=== PATIENT | female | born 1940 | race Caucasian/White ===

== ENCOUNTER 2024-02-02 21:23 | Inpatient (IN) ==
[2024-02-02 22:08] LABS: Hematocrit (blood only) 35.1 % (37.0-47.0); Hemoglobin 11.5 g/dl (12.0-16.0); Mean Corpuscular Hemoglobin 29.7 pg (25.0-34.0); Mean Corpuscular Hgb Conc 32.8 g/dL (32.0-36.0); Mean Corpuscular Volume 90.7 fL (80.0-100.0); Mean Platelet Volume 9.8 fL (9.4-12.4); Platelet Count 197 K/uL (130-400); RDW Coefficient of Variation 12.6 % (11.5-14.5); RDW Standard Deviation 41.5 fL (36.4-46.3); Red Blood Count 3.87 M/uL (4.20-5.40); White Blood Count 10.14 K/ul (4.8-10.8)
[2024-02-02 22:25] LABS: Albumin Globulin Ratio 1.4 (0.9-2); Albumin Level 4.2 gm/dl (3.4-5.0); BUN Creatinine Ratio 16.2 (10-20); Bilirubin,Total 0.6 mg/dl (0.2-1.0); Calcium 9.6 mg/dl (8.6-10.3); Creatinine Clr Calc Pharmacy 37.6 ml/min; Est GFR (African American) 57.3 ml/min; Est GFR (Non-African American) 49.4 ml/min; Globulin 2.9 gm/dl (2.5-4.0); Total Protein 7.1 gm/dl (6.0-8.3)
[2024-02-02 22:40] LABS: Partial Thromboplastin Ratio 0.9; Partial Thromboplastin Time 25 Seconds (21-31); Prothrombin Time 11.1 Seconds (9.0-12.0)
[2024-02-02] MEDS: OPTIRAY 320 100ml IV ONE (23:01)
--- NOTE | 2024-02-03 00:32 | Emergency Department Note ---
Impression & Plan Colitis, GIB (gastrointestinal bleeding) ED Provider Note NAME: KEYSHA ENCARNACION AGE: 84 SEX: F : 1940 ARRIVES VIA: Walk-In INFORMANT: Patient, ED PROVIDER(S): Augustina Reyez MD CHIEF COMPLAINT: Abdominal pain, bloody bowel movements HPI: This is an 84-year-old female presenting abdominal pain and rectal bleeding. Patient states that she has had diffuse lower abdominal pain for the past 2 days. She notes that it is fairly severe, similar to previous diverticulitis. She notes she is having pain with bowel movements as well. She notes brown stools with blood mixed around the stools. This never happened before. She is on a blood thinner to her knowledge. Otherwise no fever, chills. She does note nausea with vomiting today. ROS: See above HPI for pertinent positives & negatives. A total of 10 systems reviewed and were otherwise negative. PHYSICAL EXAMINATION: General: resting comfortably in no acute distress Head: Normocephalic and atraumatic Eyes: Normal inspection, extraocular muscles intact Ear, nose, throat: Normal external exam Neck: Normal range of motion Respiratory: lungs clear to auscultation bilaterally Cardiovascular: Regular rate/rhythm, no murmur GI: soft, lower abdominal tenderness without rebound or guarding Extremities: nontender, moves all extremities Neuro: The patient awake and alert, appropriately conversive, no focal deficits, symmetric faces Skin: Warm, dry, and intact MEDICAL DECISION MAKING: This Is a 84-year-old female presented for abdominal pain/rectal bleeding. Concern for diverticulitis, SBO, colitis, ulcer, mesenteric ischemia, lower GI bleed. -blood work is reviewed showing no leukocytosis, slight anemia at 11.5 without clear baseline. -Electrolyte within normal limits. AST 61 ALT 37. -CT imaging does reveal signs of colitis. Patient had numerous episodes of bloody bowel movements, some while in the emergency department. Patient and family are comfortable with discharge home due to persistent bleeding with bowel movements. Will discuss with hospitalist for admission at this time. Differential diagnosis: GI bleed, colitis, hemorrhoids, colitis ER treatment provided: See below Diagnostics interpreted by me: ECG: ECG independently interpreted by me with normal sinus rhythm, rate of 99, left axis deviation, normal SD, normal QRS, normal QTc, no ST segment elevations consistent with STEMI criteria Cardiac Monitoring: An order was placed for continuous cardiac monitoring. The monitor shows a rate of 82 with sinus rhythm. Laboratory studies: As stated above and show below. Imaging studies: See below. Past Med/Surg History Problem List (Updated 02/05/24 @ 01:30 by Augustina Reyez MD) GIB (gastrointestinal bleeding) (Acute) Rheumatoid arthritis Chest discomfort Recurrent UTI Insomnia GERD (gastroesophageal reflux disease) Hyperlipemia Diabetes Hypertension Colitis (Acute) Social History Smoking Status: Never smoker Hx Substance Use: No Preferred Language: Guyanese Communication Ability: Effective Travel Consultant Required: No Beliefs That Will Affect Care: None Current Living Situation: Spouse Feels Safe at Home: Yes Assistive Devices: Stair Lift and Walker Allergies Allergies Allergy/AdvReac Type Severity Reaction Status Date / Time metronidazole [From Flagyl] AdvReac Unknown Verified 02/03/24 02:59 Home Meds Home Medications Medication Instructions Recorded Confirmed amlodipine 5 mg tablet 5 mg PO DAILY 02/03/24 02/03/24 atorvastatin 80 mg tablet 80 mg PO DAILY 02/03/24 02/03/24 carvedilol 12.5 mg tablet 12.5 mg PO BID 02/03/24 02/03/24 clonazepam 0.5 mg tablet 0.5 mg PO BID PRN Anxiety 02/03/24 02/03/24 conjugated estrogens 0.625 mg/gram 1 applic vaginal DIRECTED PRN .. 02/03/24 02/03/24 vaginal cream (Premarin) dicyclomine 20 mg tablet 20 mg PO TID PRN .abd pain 02/03/24 02/03/24 folic acid 1 mg tablet 1 mg PO DAILY 02/03/24 02/03/24 metformin 500 mg tablet 250 mg PO DAILY 02/03/24 02/03/24 methotrexate sodium 2.5 mg tablet 12.5 mg PO .Q THUR 02/03/24 02/03/24 nitrofurantoin macrocrystal 100 mg 100 mg PO CQWK 02/03/24 02/03/24 capsule pantoprazole 40 mg tablet,delayed 40 mg PO DAILY 02/03/24 02/03/24 release potassium chloride 10 mEq 10 meq PO BID 02/03/24 02/03/24 tablet,extended release zolpidem 5 mg tablet 5 mg PO HS PRN Sleep 02/03/24 02/03/24 Results & Data (ED) Vital Signs Vital Signs - 24 hr 02/02/24 21:25 02/02/24 21:29 02/02/24 21:56 Temperature 36.5 C Temperature Source Oral Pulse Rate - Lying Pulse Rate - Sitting Pulse Rate - Standing Pulse Rate 110 H 87 Pulse Rate [Apical] Pulse Rhythm Regular Pulse Rhythm [Apical] Pulse Strength Normal Respiratory Rate 17 Respiratory Effort / Characteristics Non-Labored Spontaneous Respiratory Depth Normal Respiratory Pattern Regular Blood Pressure - Lying Blood Pressure - Sitting Blood Pressure- Standing Blood Pressure 144/75 H Blood Pressure [Left Arm] Blood Pressure Mean 98 Blood Pressure Mean [Left Arm] Blood Pressure Position Semi-fowlers Pulse Oximetry 94 Oxygen Delivery Method Room Air Room Air Sepsis Recent Fever Within 48 Hours No Sepsis New/Unexplained Change in Mental Status N/A Sepsis Action Taken by Nursing No Action Required 02/02/24 22:44 02/02/24 23:01 02/03/24 00:59 Temperature Temperature Source Pulse Rate - Lying 83 Pulse Rate - Sitting 89 Pulse Rate - Standing 93 H Pulse Rate Pulse Rate [Apical] 83 Pulse Rhythm Pulse Rhythm [Apical] Regular Pulse Strength Respiratory Rate 16 Respiratory Effort / Characteristics Respiratory Depth Respiratory Pattern Blood Pressure - Lying 138/81 Blood Pressure - Sitting 143/66 H Blood Pressure- Standing 97/59 L Blood Pressure Blood Pressure [Left Arm] 148/67 H Blood Pressure Mean Blood Pressure Mean [Left Arm] 94 Blood Pressure Position Pulse Oximetry 97 Oxygen Delivery Method Room Air Room Air Sepsis Recent Fever Within 48 Hours Sepsis New/Unexplained Change in Mental Status Sepsis Action Taken by Nursing Laboratory Data 02/04/24 06:28 02/04/24 06:28 Lab Results 02/02/24 Range/Units 21:37 WBC 10.14 (4.8-10.8) K/ul RBC 3.87 L (4.20-5.40) M/uL Hgb 11.5 L (12.0-16.0) g/dl Hct 35.1 L (37.0-47.0) % MCV 90.7 (80.0-100.0) fL MCH 29.7 (25.0-34.0) pg MCHC 32.8 (32.0-36.0) g/dL RDW Std Deviation 41.5 (36.4-46.3) fL RDW Coeff of Apollo 12.6 (11.5-14.5) % Plt Count 197 (130-400) K/uL MPV 9.8 (9.4-12.4) fL PT 11.1 (9.0-12.0) Seconds INR 1.0 (0.9-1.1) APTT 25 (21-31) Seconds PTT Ratio 0.9 Sodium 135 L (136-145) mmol/L Potassium 4.0 (3.5-5.1) mmol/L Chloride 104 (98-107) mmol/L Carbon Dioxide 25 (21-32) mmol/L Anion Gap 6 (3-11) BUN 17 (6-23) mg/dl Creatinine 1.05 (0.6-1.2) mg/dl Est Cr Clr Drug Dosing 37.6 ml/min Est GFR ( Amer) 57.3 ml/min Est GFR (Non-Af Amer) 49.4 ml/min BUN/Creatinine Ratio 16.2 (10-20) Glucose 110 H (70-99(Fasting)) mg/dl Calcium 9.6 (8.6-10.3) mg/dl Total Bilirubin 0.6 (0.2-1.0) mg/dl AST 61 H (13-39) U/L ALT 37 (7-52) U/L Alkaline Phosphatase 49 (34-104) U/L Troponin I High Sens 7.0 (0-14) pg/ml Total Protein 7.1 (6.0-8.3) gm/dl Albumin 4.2 (3.4-5.0) gm/dl Globulin 2.9 (2.5-4.0) gm/dl Albumin/Globulin Ratio 1.4 (0.9-2) Blood Type A Positive Antibody Screen NEGATIVE Administered Medications Acetaminophen (Acetaminophen 500 Mg Tab) 1,000 mg PO Q8H PRN PRN Reason: Pain or Fever Stop: 03/05/24 08:27 Last Admin: 02/04/24 13:05 Dose: 1,000 mg Documented By: BRI Amlodipine Besylate (Amlodipine Besylate 5 Mg Tab) 5 mg PO DAILY TORY Stop: 03/04/24 08:59 Last Admin: 02/04/24 07:51 Dose: 5 mg Documented By: Admin: 02/03/24 08:22 Dose: 5 mg Documented By: SHANAE Atorvastatin Calcium (Atorvastatin 40 Mg Tab) 80 mg PO DAILY TORY Stop: 03/05/24 15:29 Last Admin: 02/04/24 17:58 Dose: 80 mg Documented By: AFSHAN Carvedilol (Carvedilol 12.5 Mg Tab) 12.5 mg PO BID TORY Stop: 03/04/24 08:59 Last Admin: 02/04/24 20:12 Dose: 12.5 mg Documented By: Admin: 02/04/24 07:51 Dose: 12.5 mg Documented By: Admin: 02/03/24 20:27 Dose: 12.5 mg Documented By: Admin: 02/03/24 08:22 Dose: 12.5 mg Documented By: SHANAE Dicyclomine HCl (Dicyclomine Hcl 20 Mg Tab) 20 mg PO TID PRN PRN Reason: .abd pain Stop: 03/04/24 04:06 Last Admin: 02/04/24 01:41 Dose: 20 mg Documented By: Admin: 02/03/24 17:00 Dose: 20 mg Documented By: SHANAE Lactated Ringer's (Lr) 1,000 mls @ 80 mls/hr IV .[id number] TORY Stop: 03/04/24 04:59 Last Admin: 02/04/24 23:34 Dose: 80 mls/hr Documented By: Infusion: 02/04/24 22:51 Dose: Infused Documented By: Admin: 02/04/24 18:03 Dose: Not Given Documented By: Admin: 02/04/24 10:21 Dose: 80 mls/hr Documented By: Infusion: 02/04/24 10:21 Dose: Infused Documented By: Admin: 02/03/24 20:25 Dose: 80 mls/hr Documented By: Infusion: 02/03/24 19:47 Dose: Infused Documented By: Infusion: 02/03/24 16:59 Dose: 125 mls/hr Documented By: Admin: 02/03/24 09:06 Dose: 125 mls/hr Documented By: Infusion: 02/03/24 09:06 Dose: Infused Documented By: Admin: 02/03/24 05:19 Dose: 125 mls/hr Documented By: ANGELINE Pantoprazole Sodium 40 mg/ (Syringe) 10 mls @ 5 mls/min IV BID TORY Stop: 03/04/24 04:29 Last Admin: 02/04/24 20:12 Dose: 5 mls/min Documented By: Admin: 02/04/24 07:51 Dose: 5 mls/min Documented By: Admin: 02/03/24 20:26 Dose: 5 mls/min Documented By: Admin: 02/03/24 05:18 Dose: 5 mls/min Documented By: ANGELINE Nitrofurantoin Macrocrystals (Nitrofurantoin Macrocrystal 50 Mg Cap) 100 mg PO DAILY TORY Stop: 03/05/24 15:29 Last Admin: 02/04/24 17:59 Dose: 100 mg Documented By: AFSHAN Ondansetron HCl (Ondansetron Inj 2 Mg/Ml 2 Ml Vial) 4 mg IV Q6H PRN PRN Reason: Nausea Stop: 03/04/24 04:06 Last Admin: 02/03/24 20:33 Dose: 4 mg Documented By: Admin: 02/03/24 11:16 Dose: 4 mg Documented By: SHANAE Oxycodone HCl (Oxycodone Hcl Ir 5 Mg Tab (Immediate Release)) 5 mg PO Q6H PRN PRN Reason: Pain Stop: 02/18/24 08:27 Last Admin: 02/04/24 20:14 Dose: 5 mg Documented By: COLE Discontinued Medications Hydromorphone HCl (Hydromorphone Inj 0.5 Mg/0.5 Ml Syr) 0.5 mg IV Q3H PRN PRN Reason: Pain Stop: 02/17/24 04:06 Last Admin: 02/03/24 23:09 Dose: 0.5 mg Documented By: Admin: 02/03/24 09:07 Dose: 0.5 mg Documented By: Admin: 02/03/24 04:32 Dose: 0.5 mg Documented By: GABRIEL Lactated Ringer's (Lr) 500 mls @ 999 mls/hr IV .Q31M ONE Stop: 02/03/24 04:37 Last Infusion: 02/03/24 05:19 Dose: Infused Documented By: Admin: 02/03/24 04:28 Dose: 999 mls/hr Documented By: GABRIEL Acetaminophen (Ofirmev) 1,000 mg in 100 mls @ 400 mls/hr IV Q8H PRN PRN Reason: Pain Stop: 02/06/24 04:06 Last Infusion: 02/04/24 01:55 Dose: Infused Documented By: Admin: 02/04/24 01:40 Dose: 400 mls/hr Documented By: Infusion: 02/03/24 17:20 Dose: Infused Documented By: Admin: 02/03/24 17:02 Dose: 400 mls/hr Documented By: SHANAE Ioversol (Optiray 320 100ml) 94 ml IV ONCE ONE Stop: 02/02/24 23:02 Last Admin: 02/02/24 23:01 Dose: 94 ml Documented By: JOSE Imaging Data Radiologist's Impression: Abdomen/Pelvis CT 02/02/24 22:41 Exam(s): CT ABDOMEN + PELVIS With Contrast IV Amt: 94 ml opti 320 EXAM: CT Abdomen and Pelvis With Intravenous Contrast CLINICAL HISTORY: Reason for exam: ABd pain x2 days, rectal bleed. TECHNIQUE: Axial computed tomography images of the abdomen and pelvis with intravenous contrast. Automated exposure control was utilized for the study. A dose lowering technique was utilized adhering to the principles of ALARA. CONTRAST: Patient received 94 ml opti 320 of IV contrast COMPARISON: No relevant prior studies available. FINDINGS: Lung bases: Unremarkable. No mass. No consolidation. ABDOMEN: Liver: Hepatic steatosis. Gallbladder and bile ducts: Cholecystectomy. No ductal dilation. Pancreas: Unremarkable. No mass. No ductal dilation. Spleen: Unremarkable. No splenomegaly. Adrenals: Unremarkable. No mass. Kidneys and ureters: LEFT upper pole renal cyst measures 5.1 cm. No hydronephrosis or delayed nephrogram. Stomach and bowel: Moderate wall thickening of the sigmoid colon, concerning for colitis. Diverticulosis, without acute diverticulitis. No bowel obstruction. No free air. PELVIS: Appendix: No findings to suggest acute appendicitis. Bladder: Unremarkable. No mass. Reproductive: Unremarkable as visualized. ABDOMEN and PELVIS: Intraperitoneal space: See above. Bones/joints: Degenerative changes of the spine. No acute fracture. No dislocation. Soft tissues: Unremarkable. Vasculature: Atherosclerotic changes of the aorta. No abdominal aortic aneurysm. Lymph nodes: Unremarkable. No enlarged lymph nodes. IMPRESSION: 1. Moderate wall thickening of the sigmoid colon, concerning for colitis. 2. Hepatic steatosis. 3. Cholecystectomy. 4. Diverticulosis, without acute diverticulitis. No bowel obstruction. No free air. Electronically signed by: Gino Xiong MD 02/03/24 01:09 AM Discharge Plan Visit Data Chief Complaint: Bleeding Stated Complaint: BLEED RECTAL, SWELLING, FATIGUE. LIGHTHEADED ED Provider: Augustina Reyez Discharge Problem: Colitis, GIB (gastrointestinal bleeding) Patient Disposition: Admitted As Inpatient Discharge Instructions Interventions: ED Discharge Assessment Last Done: 02/03/24 03:51
--- NOTE | 2024-02-03 01:10 | CT Scan Report ---
Exam(s): CT ABDOMEN + PELVIS With Contrast IV Amt: 94 ml opti 320 EXAM: CT Abdomen and Pelvis With Intravenous Contrast CLINICAL HISTORY: Reason for exam: ABd pain x2 days, rectal bleed. TECHNIQUE: Axial computed tomography images of the abdomen and pelvis with intravenous contrast. Automated exposure control was utilized for the study. A dose lowering technique was utilized adhering to the principles of ALARA. CONTRAST: Patient received 94 ml opti 320 of IV contrast COMPARISON: No relevant prior studies available. FINDINGS: Lung bases: Unremarkable. No mass. No consolidation. ABDOMEN: Liver: Hepatic steatosis. Gallbladder and bile ducts: Cholecystectomy. No ductal dilation. Pancreas: Unremarkable. No mass. No ductal dilation. Spleen: Unremarkable. No splenomegaly. Adrenals: Unremarkable. No mass. Kidneys and ureters: LEFT upper pole renal cyst measures 5.1 cm. No hydronephrosis or delayed nephrogram. Stomach and bowel: Moderate wall thickening of the sigmoid colon, concerning for colitis. Diverticulosis, without acute diverticulitis. No bowel obstruction. No free air. PELVIS: Appendix: No findings to suggest acute appendicitis. Bladder: Unremarkable. No mass. Reproductive: Unremarkable as visualized. ABDOMEN and PELVIS: Intraperitoneal space: See above. Bones/joints: Degenerative changes of the spine. No acute fracture. No dislocation. Soft tissues: Unremarkable. Vasculature: Atherosclerotic changes of the aorta. No abdominal aortic aneurysm. Lymph nodes: Unremarkable. No enlarged lymph nodes. IMPRESSION: 1. Moderate wall thickening of the sigmoid colon, concerning for colitis. 2. Hepatic steatosis. 3. Cholecystectomy. 4. Diverticulosis, without acute diverticulitis. No bowel obstruction. No free air. Electronically signed by: Gino Xiong MD 02/03/24 01:09 AM
--- NOTE | 2024-02-03 02:11 | History & Physical Report ---
Date of Service February 03, 2024 Assessment & Plan (1) Colitis: Plan: Non-specific colitis seen on CT A&P. Diverticulosis without signs of diverticulitis. PCR stool ordered. Heme all stools ordered. Continue with conservative measures for now. NPO - sips/chips okay IVF - LR bolus 500 mL x1, mIVF @125 Tylenol 1 g Q8H PRN, dilaudid 0.25 and 0.5 Q3H PRN GI consulted - appreciate recs f/u stool PCR continue home dicyclomine IV protonix 40 mg BID (2) Hypertension: Plan: Continue home amlodipine and coreg (3) Diabetes: Plan: Hold home metformin. If persistently elevated sugars could consider SSI. (4) Hyperlipemia: Plan: Hold statin for now. Resume once feeling better. (5) GERD (gastroesophageal reflux disease): Plan: Switch to IV protonix while inpatient - 40 mg BID (6) Insomnia: Plan: Continue home Ambien and PRN clonazepam (7) Recurrent UTI: Plan: Patient with difficulty with complete voiding. Does straight cath TID. Will continue with Q6H cath while inpatient. Is on chronic abx for recurrent UTI. Dosing unclear as med rec says PO nitrofurantoin CQWK. Would clarify what that means. (8) Chest discomfort: Plan: Left sided pain under the breast. EKG with non-specific changes ?q-waves. Patient likely had trops at [facility] which were most likely negative. Do not have access to these records at present. Ordered trop with repeat in 2 hours if > 20. Low suspicion for ACS. If trop positive would move to tele floor. Plan Code status: full DVT ppx: SCDs, chemo ppx contraindicated as GI bleed FENGI: NPO for now - sips and chips okay, IVF @ 125 mL/hr LR Dispo: MedSurg History of Present Illness Chief Complaint: blood in stool Primary Care Provider: Nilson San DO 84 y/o female with a PMHx of HTN, DM, GERD, and HLD presents with 3 days of significant abdominal pain. Symptoms started with diffuse, sharp, stabbing abdominal pain, cramping abdominal pain, nausea, vomiting and constipation. 02/01 patient developed bloody BMs. No significant volume to BM, but there was blood in the bowl and blood with wiping. No lightheadedness or dizziness. No fevers or chills. No chest pain or SOB. Patient with one episode of vomiting. No sick contacts. Patient did note having some pain under the left breast as well. Patient did go to [facility] prior to this and they did "labs and an echocardiogram". Patient not aware of the results of these tests. Allergies Allergy/AdvReac Type Severity Reaction Status Date / Time metronidazole [From Flagyl] AdvReac Unknown Verified 02/03/24 02:59 Home Medications Medication Instructions Recorded Confirmed Type amlodipine 5 mg tablet 5 mg PO DAILY 02/03/24 02/03/24 History atorvastatin 80 mg tablet 80 mg PO DAILY 02/03/24 02/03/24 History carvedilol 12.5 mg tablet 12.5 mg PO BID 02/03/24 02/03/24 History clonazepam 0.5 mg tablet 0.5 mg PO BID PRN Anxiety 02/03/24 02/03/24 History conjugated estrogens 0.625 mg/gram 1 applic vaginal DIRECTED PRN .. 02/03/24 02/03/24 History vaginal cream (Premarin) dicyclomine 20 mg tablet 20 mg PO TID PRN .abd pain 02/03/24 02/03/24 History folic acid 1 mg tablet 1 mg PO DAILY 02/03/24 02/03/24 History metformin 500 mg tablet 250 mg PO DAILY 02/03/24 02/03/24 History methotrexate sodium 2.5 mg tablet 12.5 mg PO .Q THUR 02/03/24 02/03/24 History nitrofurantoin macrocrystal 100 mg 100 mg PO CQWK 02/03/24 02/03/24 History capsule pantoprazole 40 mg tablet,delayed 40 mg PO DAILY 02/03/24 02/03/24 History release potassium chloride 10 mEq 10 meq PO BID 02/03/24 02/03/24 History tablet,extended release zolpidem 5 mg tablet 5 mg PO HS PRN Sleep 02/03/24 02/03/24 History Past Med/Surg History Problem List Chest discomfort Recurrent UTI Insomnia GERD (gastroesophageal reflux disease) Hyperlipemia Diabetes Hypertension Colitis Social History Smoking Status: Never smoker Hx Substance Use: No Preferred Language: Pashto 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 Beliefs That Will Affect Care: None Current Living Situation: Spouse Feels Safe at Home: Yes Review of Systems 2 Review of Systems: See HPI Physical Exam 2 Physical Exam: Gen: well appearing female patient in NAD HEENT: AT NC MMM Resp: CTAB no wheezing no increased work of breathing CV: RRR no m/r/g clinically well perfused Abd: +BS, soft, mildly tender LLQ, slightly distended without peritoneal signs MSK: no obvious deformities Skin: no rashes or bruising Neuro: alert and oriented Psych: appropriate mood and affect Results & Data Results & Data Vital Signs (Past 12 Hours) Vital Signs Temp Pulse Pulse Resp BP BP Pulse Ox 02/03/24 02:07 85 02/03/24 00:59 83 16 148/67 H 97 02/02/24 23:01 02/02/24 21:56 87 02/02/24 21:29 36.5 C 110 H 17 144/75 H 94 02/02/24 21:25 O2 Del Method 02/03/24 02:07 02/03/24 00:59 Room Air 02/02/24 23:01 Room Air 02/02/24 21:56 02/02/24 21:29 Room Air 02/02/24 21:25 Room Air Laboratory Results 02/02/24 21:37 02/02/24 21:37 Diagnostic Findings Abdomen/Pelvis CT 02/02/24 22:41 FINDINGS: Lung bases: Unremarkable. No mass. No consolidation. ABDOMEN: Liver: Hepatic steatosis. Gallbladder and bile ducts: Cholecystectomy. No ductal dilation. Pancreas: Unremarkable. No mass. No ductal dilation. Spleen: Unremarkable. No splenomegaly. Adrenals: Unremarkable. No mass. Kidneys and ureters: LEFT upper pole renal cyst measures 5.1 cm. No hydronephrosis or delayed nephrogram. Stomach and bowel: Moderate wall thickening of the sigmoid colon, concerning for colitis. Diverticulosis, without acute diverticulitis. No bowel obstruction. No free air. PELVIS: Appendix: No findings to suggest acute appendicitis. Bladder: Unremarkable. No mass. Reproductive: Unremarkable as visualized. ABDOMEN and PELVIS: Intraperitoneal space: See above. Bones/joints: Degenerative changes of the spine. No acute fracture. No dislocation. Soft tissues: Unremarkable. Vasculature: Atherosclerotic changes of the aorta. No abdominal aortic aneurysm. Lymph nodes: Unremarkable. No enlarged lymph nodes. IMPRESSION: 1. Moderate wall thickening of the sigmoid colon, concerning for colitis. 2. Hepatic steatosis. 3. Cholecystectomy. 4. Diverticulosis, without acute diverticulitis. No bowel obstruction. No free air. Supervising Physician Co-Signing Physician Notes Attending addendum: I have physically seen this patient, have supervised the medical residents activities, and agree with the H&P unless as otherwise noted. Assessment and Plan: Sigmoid colitis- CT with thickening of sigmoid colon suggestive of sigmoid colitis Diverticulosis without signs of diverticulitis Order stool PCR, can start IV antibiotics if no E. coli Bowel rest NPO, except for sips of water and maintenance medications IV fluids: LR bolus 500 mL, followed by maintenance at 125 MLS per hour Acetaminophen 1 g IV every 8 hours as needed for mild pain or fever Dilaudid 0.25 mg IV every 3 hours as needed for moderate pain Dilaudid 0.5 mg IV every 3 hours as needed for severe pain Pantoprazole 40 mg IV twice daily Consult to gastroenterology Hypertension- Continue amlodipine and Coreg with hold parameters Diabetes mellitus- Hold metformin Placed on Accu-Cheks with NovoLog SSI Immunocompromised- On methotrexate as outpatient Follow cultures and sensitivities Resident Activity Tracking Resident Involvement: Resident Care Provided Care Provided: Adult [facility]
[2024-02-03] MEDS ORDERED: MELATONIN 3 MG TAB PO PRN (04:07)
[2024-02-03] MEDS ORDERED: HYDROmorphone INJ 0.5 MG/0.5 ML SYR IV PRN (04:07)
[2024-02-03] MEDS: LACTATED RINGER'S 500 ML IV ONE (04:28)
[2024-02-03] MEDS: HYDROmorphone INJ 0.5 MG/0.5 ML SYR IV PRN (04:32)
[2024-02-03] MEDS: PANTOprazole 40 MG in SYRINGE 0 ML IV SCH (05:18)
[2024-02-03] MEDS: LACTATED RINGER'S 1,000 ML IV SCH (05:19)
[2024-02-03 06:14] LABS: Basophils # (auto) 0.03 K/uL (0.00-0.20); Basophils % (auto) 0.3 %; Eosinophils # (auto) 0.11 K/uL (0.00-0.50); Eosinophils % (auto) 1.3 %; Hematocrit (blood only) 31.2 % (37.0-47.0); Hemoglobin 10.1 g/dl (12.0-16.0); Immature Granulocytes # (auto) 0.02 K/uL (0.01-0.20); Immature Granulocytes % (auto) 0.2 %; Lymphocytes # (auto) 1.28 K/uL (1.20-3.40); Lymphocytes % (auto) 14.6 %; Mean Corpuscular Hemoglobin 29.4 pg (25.0-34.0); Mean Corpuscular Hgb Conc 32.4 g/dL (32.0-36.0); Mean Platelet Volume 9.7 fL (9.4-12.4); Monocytes # (auto) 1.11 K/uL (0.11-0.59); Monocytes % (auto) 12.6 %; Neutrophils # (auto) 6.24 K/uL (1.40-6.50); Platelet Count 159 K/uL (130-400); RDW Coefficient of Variation 12.7 % (11.5-14.5); Red Blood Count 3.43 M/uL (4.20-5.40); White Blood Count 8.79 K/ul (4.8-10.8)
[2024-02-03 06:40] LABS: Albumin Globulin Ratio 1.4 (0.9-2); Albumin Level 3.6 gm/dl (3.4-5.0); BUN Creatinine Ratio 13.8 (10-20); Bilirubin,Total 0.6 mg/dl (0.2-1.0); Calcium 8.8 mg/dl (8.6-10.3); Est GFR (African American) 65.5 ml/min; Est GFR (Non-African American) 56.5 ml/min; Globulin 2.5 gm/dl (2.5-4.0); Magnesium 1.8 mg/dl (1.7-2.4); Potassium 3.8 mmol/L (3.5-5.1); Total Protein 6.1 gm/dl (6.0-8.3)
[2024-02-03] MEDS: amLODIPine BESYLATE 5 MG TAB PO SCH (08:22)
[2024-02-03] MEDS: carvediloL 12.5 MG TAB PO SCH (08:22)
--- NOTE | 2024-02-03 09:28 | Gastrointestinal Consultation ---
Date of Consultation February 03, 2024 Assessment & Plan (1) Colitis: Pleasant woman with an acute colitis of unclear cause. Most likely this is an acute, self-limited infectious colitis but it could also be ischemic colitis although she has no antecedent symptoms nor history of hypotension/heart failure to lead her to this. As she had a colonoscopy three years ago and this is an acute process I don't plan evaluation. Will follow with you. History of Present Illness Reason for Consultation: colitis Attending Physician: Victor M Fam MD History of Present Illness 84 year old female who was in her normal state of health until yesterday morning "early" she developed abdominal pain. She had a diarrhea stool of small volume and then passed blood. She has had several more episodes just like that with the last one being about 4 am this morning. She hasn't had fever that she is aware of but she was also nauseated with this. She doesn't have much in the way of chronic GI issues but will take dicyclomine on occasion for IBS. She does not recall eating much food the day prior to this happening. Her last colonoscopy was three years ago and a couple of polyps were removed. She has never had colitis before. Allergies Allergy/AdvReac Type Severity Reaction Status Date / Time metronidazole [From Flagyl] AdvReac Unknown Verified 02/03/24 02:59 Home Medications Medication Instructions Recorded Confirmed Type amlodipine 5 mg tablet 5 mg PO DAILY 02/03/24 02/03/24 History atorvastatin 80 mg tablet 80 mg PO DAILY 02/03/24 02/03/24 History carvedilol 12.5 mg tablet 12.5 mg PO BID 02/03/24 02/03/24 History clonazepam 0.5 mg tablet 0.5 mg PO BID PRN Anxiety 02/03/24 02/03/24 History conjugated estrogens 0.625 mg/gram 1 applic vaginal DIRECTED PRN .. 02/03/24 02/03/24 History vaginal cream (Premarin) dicyclomine 20 mg tablet 20 mg PO TID PRN .abd pain 02/03/24 02/03/24 History folic acid 1 mg tablet 1 mg PO DAILY 02/03/24 02/03/24 History metformin 500 mg tablet 250 mg PO DAILY 02/03/24 02/03/24 History methotrexate sodium 2.5 mg tablet 12.5 mg PO .Q THUR 02/03/24 02/03/24 History nitrofurantoin macrocrystal 100 mg 100 mg PO CQWK 02/03/24 02/03/24 History capsule pantoprazole 40 mg tablet,delayed 40 mg PO DAILY 02/03/24 02/03/24 History release potassium chloride 10 mEq 10 meq PO BID 02/03/24 02/03/24 History tablet,extended release zolpidem 5 mg tablet 5 mg PO HS PRN Sleep 02/03/24 02/03/24 History Patient History Social History Smoking Status: Never smoker Hx Substance Use: No Preferred Language: Polish 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: No Beliefs That Will Affect Care: None Current Living Situation: Spouse Feels Safe at Home: Yes Review of Systems Review of Systems: All systems reviewed & are unremarkable except as noted in HPI & below Physical Exam Constitutional: WD/WN, vitals as above pleasant Neck: trachea midline, no thyromegaly Respiratory: normal respiratory effort, lungs clear to auscultation Cardiovascular: RRR, no murmur, no edema Gastrointestinal (Abdomen): Inspection/Auscultation: abdomen normal to inspection; abdomen not distended Percussion/Palpation: + abdomen tender (left side of abdomen) and abdomen soft; no hepatosplenomegaly Musculoskeletal: Extremities: extremities normal to inspection Results & Data Vital Signs (Past 12 Hours) Vital Signs Temp Pulse Pulse Resp BP BP Pulse Ox 02/03/24 07:16 36.8 C 77 18 115/63 93 02/03/24 05:36 37.0 C 83 16 94/70 L 94 02/03/24 04:07 36.3 C L 19 90/74 L 92 02/03/24 03:51 02/03/24 02:38 85 16 128/76 95 02/03/24 02:07 85 02/03/24 02:00 82 16 132/63 94 02/03/24 00:59 83 16 148/67 H 97 02/02/24 23:01 02/02/24 21:56 87 02/02/24 21:29 36.5 C 110 H 17 144/75 H 94 02/02/24 21:25 O2 Del Method 02/03/24 07:16 Room Air 02/03/24 05:36 Room Air 02/03/24 04:07 Room Air 02/03/24 03:51 Room Air 02/03/24 02:38 Room Air 02/03/24 02:07 02/03/24 02:00 Room Air 02/03/24 00:59 Room Air 02/02/24 23:01 Room Air 02/02/24 21:56 02/02/24 21:29 Room Air 02/02/24 21:25 Room Air Laboratory Results 02/03/24 02/03/24 02/02/24 Range/Units 05:48 03:44 21:37 WBC 8.79 10.14 (4.8-10.8) K/ul RBC 3.43 L 3.87 L (4.20-5.40) M/uL Hgb 10.1 L 11.5 L (12.0-16.0) g/dl Hct 31.2 L 35.1 L (37.0-47.0) % MCV 91.0 90.7 (80.0-100.0) fL MCH 29.4 29.7 (25.0-34.0) pg MCHC 32.4 32.8 (32.0-36.0) g/dL RDW Std Deviation 42.0 41.5 (36.4-46.3) fL RDW Coeff of Apollo 12.7 12.6 (11.5-14.5) % Plt Count 159 197 (130-400) K/uL MPV 9.7 9.8 (9.4-12.4) fL Immature Gran % (Auto) 0.2 % Neut % (Auto) 71.0 % Lymph % (Auto) 14.6 % Lares % (Auto) 12.6 % Eos % (Auto) 1.3 % Baso % (Auto) 0.3 % Neut # (Auto) 6.24 (1.40-6.50) K/uL Lymph # (Auto) 1.28 (1.20-3.40) K/uL Lares # (Auto) 1.11 H (0.11-0.59) K/uL Eos # (Auto) 0.11 (0.00-0.50) K/uL Baso # (Auto) 0.03 (0.00-0.20) K/uL Immature Gran # (Auto) 0.02 (0.01-0.20) K/uL PT 11.1 (9.0-12.0) Seconds INR 1.0 (0.9-1.1) APTT 25 (21-31) Seconds PTT Ratio 0.9 Sodium 138 135 L (136-145) mmol/L Potassium 3.8 4.0 (3.5-5.1) mmol/L Chloride 106 104 (98-107) mmol/L Carbon Dioxide 26 25 (21-32) mmol/L Anion Gap 6 6 (3-11) BUN 13 17 (6-23) mg/dl Creatinine 0.94 1.05 (0.6-1.2) mg/dl Est Cr Clr Drug Dosing 42.0 37.6 ml/min Est GFR ( Amer) 65.5 57.3 ml/min Est GFR (Non-Af Amer) 56.5 49.4 ml/min BUN/Creatinine Ratio 13.8 16.2 (10-20) Glucose 107 H 110 H (70-99(Fasting)) mg/dl Calcium 8.8 9.6 (8.6-10.3) mg/dl Magnesium 1.8 (1.7-2.4) mg/dl Total Bilirubin 0.6 0.6 (0.2-1.0) mg/dl AST 48 H 61 H (13-39) U/L ALT 31 37 (7-52) U/L Alkaline Phosphatase 42 49 (34-104) U/L Troponin I High Sens 7.1 7.0 (0-14) pg/ml Total Protein 6.1 7.1 (6.0-8.3) gm/dl Albumin 3.6 4.2 (3.4-5.0) gm/dl Globulin 2.5 2.9 (2.5-4.0) gm/dl Albumin/Globulin Ratio 1.4 1.4 (0.9-2) Blood Type A Positive Antibody Screen NEGATIVE Diagnostic Findings Abdomen/Pelvis CT 02/02/24 22:41 Exam(s): CT ABDOMEN + PELVIS With Contrast IV Amt: 94 ml opti 320 EXAM: CT Abdomen and Pelvis With Intravenous Contrast CLINICAL HISTORY: Reason for exam: ABd pain x2 days, rectal bleed. TECHNIQUE: Axial computed tomography images of the abdomen and pelvis with intravenous contrast. Automated exposure control was utilized for the study. A dose lowering technique was utilized adhering to the principles of ALARA. CONTRAST: Patient received 94 ml opti 320 of IV contrast COMPARISON: No relevant prior studies available. FINDINGS: Lung bases: Unremarkable. No mass. No consolidation. ABDOMEN: Liver: Hepatic steatosis. Gallbladder and bile ducts: Cholecystectomy. No ductal dilation. Pancreas: Unremarkable. No mass. No ductal dilation. Spleen: Unremarkable. No splenomegaly. Adrenals: Unremarkable. No mass. Kidneys and ureters: LEFT upper pole renal cyst measures 5.1 cm. No hydronephrosis or delayed nephrogram. Stomach and bowel: Moderate wall thickening of the sigmoid colon, concerning for colitis. Diverticulosis, without acute diverticulitis. No bowel obstruction. No free air. PELVIS: Appendix: No findings to suggest acute appendicitis. Bladder: Unremarkable. No mass. Reproductive: Unremarkable as visualized. ABDOMEN and PELVIS: Intraperitoneal space: See above. Bones/joints: Degenerative changes of the spine. No acute fracture. No dislocation. Soft tissues: Unremarkable. Vasculature: Atherosclerotic changes of the aorta. No abdominal aortic aneurysm. Lymph nodes: Unremarkable. No enlarged lymph nodes. IMPRESSION: 1. Moderate wall thickening of the sigmoid colon, concerning for colitis. 2. Hepatic steatosis. 3. Cholecystectomy. 4. Diverticulosis, without acute diverticulitis. No bowel obstruction. No free air. Electronically signed by: Gino Xiong MD 02/03/24 01:09 AM
[2024-02-03] MEDS: ONDANSETRON INJ 2 MG/ML 2 ML VIAL IV PRN (11:16)
--- NOTE | 2024-02-03 13:38 | Hospitalist Progress Note ---
Date of Service February 03, 2024 Assessment & Plan (1) Colitis: Plan: Nonspecific. Probably viral. Stool BioFire pending. Will allow clear liquid diet. IV fluids taper down. (2) Hypertension: Plan: Stable. Continue current medical management (3) Diabetes: Plan: Type II. Eventual advancement to ADA diet. Metformin is on hold. Sliding scale insulin as needed (4) GERD (gastroesophageal reflux disease): Plan: PPI therapy Plan Home soon. Possibly tomorrow, February 03 Admission and Anticipated Discharge Date Admission Date: February 03, 2024 Subjective Alert and oriented. No distress. She has what appears to be a viral colitis. Clear liquids have been started and IV fluids taper down. Stool BioFire is pending. No need for GI consultation at this point. Review of Systems 2 Review of Systems: Constitutional-no fever or chills ENT-no blurred vision, no double vision, no epistaxis, no sore throat Respiratory-no cough, no wheezing, no shortness of breath Cardiac-no palpitations, no chest pain, no syncope GI-no nausea, vomiting, melena, hematochezia. Loose stools without blood -no urinary retention, no urinary incontinence, no dysuria, no hematuria Musculoskeletal-no joint pain, no muscle tenderness Skin-no bruising, no rashes, no pruritus Neuro-no isolated weakness, no paresthesia, no weakness Psych-no depression, no anxiety Physical Exam 2 Physical Exam: General-alert and oriented x3, no fever, no chills HEENT-head atraumatic and normocephalic, pupils equal and reactive to light, extraocular muscles intact Neck-no lymphadenopathy or thyromegaly, trachea midline Chest-clear to auscultation. No rales, wheezing or rhonchi Cardiac-regular rate and rhythm, normal S1 and S2 Abdomen-normal bowel sounds, no hepatosplenomegaly. Mild mid left and left lower quadrant tenderness to palpation. No rebound or guarding Extremities-no cyanosis, clubbing, or edema Neuro-cranial nerves II through XII intact, motor and sensory function within normal limits, strength symmetrical, no focal deficits Psych-normal affect, normal mood Results & Data Results & Data Vital Signs (Past 12 Hours) Vital Signs Temp Pulse Pulse Resp BP Pulse Ox O2 Del Method 02/03/24 07:16 36.8 C 77 18 115/63 93 Room Air 02/03/24 05:36 37.0 C 83 16 94/70 L 94 Room Air 02/03/24 04:07 36.3 C L 19 90/74 L 92 Room Air 02/03/24 03:51 Room Air 02/03/24 02:38 85 16 128/76 95 Room Air 02/03/24 02:07 85 02/03/24 02:00 82 16 132/63 94 Room Air Laboratory Results 02/03/24 05:48 02/03/24 05:48 PG Care Time/CCT Total # of Minutes Spent Total Time Spent with Patient: Total time spent is greater than 50% in coordination of care (as documented) at patient's floor/unit and/or counseling patient: Coding Level of Care Code 93011 SUB INP/OBS CARE 350MIN Diagnoses Colitis K52.9 Hypertension I10 Diabetes E11.9 GERD (gastroesophageal reflux disease) K21.9
[2024-02-03 16:05] LABS: Adenovirus F 40/41 PCR Not Detected (NotDetected); Astrovirus PCR Not Detected (NotDetected); Campylobacter PCR Not Detected (NotDetected); Cryptosporidium PCR Not Detected (NotDetected); Cyclospora cayetanensis PCR Not Detected (NotDetected); Entamoeba histolytica PCR Not Detected (NotDetected); Enteroaggregative E.coli(EAEC) Not Detected (NotDetected); Enteropathogenic E.coli (EPEC) Not Detected (NotDetected); Enterotoxigenic E.coli (ETEC) Not Detected (NotDetected); Giardia lamblia PCR Not Detected (NotDetected); Norovirus GI/GII PCR Not Detected (NotDetected); Plesiomonas shigelloides PCR Not Detected (NotDetected); Rotavirus A PCR Not Detected (NotDetected); Salmonella PCR Not Detected (NotDetected); Sapovirus PCR Not Detected (NotDetected); Shiga-like Toxin E.coli (STEC) Not Detected (NotDetected); Shigella/Enteroinvasive E.coli Not Detected (NotDetected); Vibrio cholerae PCR Not Detected (NotDetected); Vibrio species PCR Not Detected (NotDetected); Yersinia enterocolitica PCR Not Detected (NotDetected)
[2024-02-03] MEDS: DICYCLOMINE HCL 20 MG TAB PO PRN (17:00)
[2024-02-03] MEDS: ACETAMINOPHEN 1,000 MG/100 ML VIAL IV PRN (17:02)
--- NOTE | 2024-02-03 19:47 | Billing Data ---
Date of Service February 03, 2024 Coding Level of Care Code 64350 INT INP/OBS CARE
--- NOTE | 2024-02-04 06:09 | Electrocardiogram Report ---
Test Reason : Blood Pressure : / mmHG Vent. Rate : 099 BPM Atrial Rate : 099 BPM P-R Int : 182 ms QRS Dur : 064 ms QT Int : 330 ms P-R-T Axes : 038 -37 030 degrees QTc Int : 423 ms Normal sinus rhythm Left axis deviation Low voltage QRS Possible Inferior infarct , age undetermined Cannot rule out Anteroseptal infarct , age undetermined Abnormal ECG No previous ECGs available Confirmed by Rajesh Newsome ([id number]) on 02/04/2024 6:08:30 AM Referred By: Nilson San Confirmed By:Rajesh Newsome
[2024-02-04 06:59] LABS: Basophils # (auto) 0.02 K/uL (0.00-0.20); Basophils % (auto) 0.3 %; Eosinophils # (auto) 0.16 K/uL (0.00-0.50); Eosinophils % (auto) 2.3 %; Hematocrit (blood only) 30.2 % (37.0-47.0); Hemoglobin 9.7 g/dl (12.0-16.0); Immature Granulocytes # (auto) 0.01 K/uL (0.01-0.20); Immature Granulocytes % (auto) 0.1 %; Lymphocytes # (auto) 1.05 K/uL (1.20-3.40); Lymphocytes % (auto) 15.4 %; Mean Corpuscular Hemoglobin 29.5 pg (25.0-34.0); Mean Corpuscular Hgb Conc 32.1 g/dL (32.0-36.0); Mean Corpuscular Volume 91.8 fL (80.0-100.0); Mean Platelet Volume 9.8 fL (9.4-12.4); Monocytes # (auto) 0.69 K/uL (0.11-0.59); Monocytes % (auto) 10.1 %; Neutrophils # (auto) 4.91 K/uL (1.40-6.50); Neutrophils % (auto) 71.8 %; Platelet Count 136 K/uL (130-400); RDW Coefficient of Variation 12.7 % (11.5-14.5); RDW Standard Deviation 42.4 fL (36.4-46.3); Red Blood Count 3.29 M/uL (4.20-5.40); White Blood Count 6.84 K/ul (4.8-10.8)
[2024-02-04 08:38] LABS: Albumin Globulin Ratio 1.4 (0.9-2); Albumin Level 3.2 gm/dl (3.4-5.0); BUN Creatinine Ratio 9.2 (10-20); Bilirubin,Total 0.6 mg/dl (0.2-1.0); Calcium 8.3 mg/dl (8.6-10.3); Creatinine Clr Calc Pharmacy 45.4 ml/min; Est GFR (African American) 71.9 ml/min; Globulin 2.3 gm/dl (2.5-4.0); Magnesium 1.8 mg/dl (1.7-2.4); Potassium 3.6 mmol/L (3.5-5.1); Total Protein 5.5 gm/dl (6.0-8.3)
[2024-02-04] MEDS: ACETAMINOPHEN 500 MG TAB PO PRN (13:05)
--- NOTE | 2024-02-04 13:35 | Hospitalist Progress Note ---
Date of Service February 04, 2024 Assessment & Plan (1) Colitis: Plan: Non-specific colitis seen on CT A&P. Diverticulosis without signs of diverticulitis. - PCR stool: Negative - Heme stools ordered, pending - Does have hx of IBS, follows with [facility] in [place] - requested records - IV protonix BID -Diet advanced to full liquids - Continue maintence IVFs @ 80 ml/hr - Pain control prn tylenol and oxycodone GI consulted - appreciate recs - not recommending scope 02/02 (2) Hypertension: Plan: Continue home amlodipine and coreg (3) Diabetes: Plan: Hold home metformin (250mg daily) If persistently elevated sugars could consider SSI. (4) Hyperlipemia: Plan: Continue statin (5) GERD (gastroesophageal reflux disease): Plan: Switch to IV protonix while inpatient - 40 mg BID (6) Insomnia: Plan: Continue home Ambien prn and PRN clonazepam (7) Recurrent UTI: Plan: Patient with difficulty with complete voiding. Does straight cath TID. Will continue with Q6H cath while inpatient. Is on chronic abx for recurrent UTI - macrobid 100mg daily (8) Chest discomfort: Plan: Left sided pain under the breast. EKG with non-specific changes ?q-waves. Trop negative x2 Low suspicion for ACS. (9) Rheumatoid arthritis: Plan: Hold methotrexate - patient states she just restarted this last week Plan DVT ppx: SCDs, chemo ppx contraindicated as GI bleed Dispo: continued inpatient stay Admission and Anticipated Discharge Date Admission Date: February 03, 2024 Supervising Physician Co-Signing Physician Notes GISEL Supervision Note: I did not personally see or examine the patient today, but I verified all conway points of GISEL Griffith's assessment and plan with the following exceptions/additions: None Subjective Patient seen sitting up in bed in room 382. States that she was in [facility] -sunday for more upper abdominal pain, and pain under her breast. States they checked out her heart and then she left. This morning she is feeling worse than shes felt in the last 24ish hours. More abdominal pain and more frequent stooling. Has not noticed blood with the last few stools. Abdoimal pain is bilateral, lower and cramping and sharp feeling. no pain with urination but pt chronically straight caths. Denies fevers and chills. 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 Extremities: Moves all extremities, no edema Neuro: A&O x3, Skin: intact, no lesions noted Results & Data Results & Data Vital Signs (Past 12 Hours) Vital Signs Temp Pulse Resp BP Pulse Ox O2 Del Method 02/04/24 07:18 36.9 C 74 18 136/62 94 Room Air Laboratory Results CBC and chemistry reviewed PG Care Time/CCT Total # of Minutes Spent Total Time Spent with Patient: Total time spent is greater than 50% in coordination of care (as documented) at patient's floor/unit and/or counseling patient: Coding Level of Care Code 18232 SUB INP/OBS CARE 3/50MIN Diagnoses Colitis K52.9 Hypertension I10 Diabetes E11.9 Hyperlipemia E78.5 GERD (gastroesophageal reflux disease) K21.9 Insomnia G47.00 Recurrent UTI N39.0 Chest discomfort R07.89 Rheumatoid arthritis M06.9
[2024-02-04] MEDS: ATORVASTATIN 40 MG TAB PO SCH (17:58)
[2024-02-04] MEDS: nitrofurantoin macrocrystaL 50 MG CAP PO SCH (17:59)
[2024-02-04] MEDS: oxyCODONE HCL IR 5 MG TAB (IMMEDIATE RELEASE) PO PRN (20:14)
[2024-02-05 07:49] LABS: Basophils # (auto) 0.03 K/uL (0.00-0.20); Basophils % (auto) 0.5 %; Eosinophils # (auto) 0.22 K/uL (0.00-0.50); Eosinophils % (auto) 3.8 %; Immature Granulocytes # (auto) 0.02 K/uL (0.01-0.20); Immature Granulocytes % (auto) 0.3 %; Lymphocytes # (auto) 0.94 K/uL (1.20-3.40); Lymphocytes % (auto) 16.3 %; Mean Corpuscular Hemoglobin 29.5 pg (25.0-34.0); Mean Corpuscular Hgb Conc 32.3 g/dL (32.0-36.0); Mean Corpuscular Volume 91.4 fL (80.0-100.0); Mean Platelet Volume 9.8 fL (9.4-12.4); Monocytes # (auto) 0.54 K/uL (0.11-0.59); Monocytes % (auto) 9.4 %; Neutrophils # (auto) 4.01 K/uL (1.40-6.50); Neutrophils % (auto) 69.7 %; Platelet Count 152 K/uL (130-400); RDW Coefficient of Variation 12.7 % (11.5-14.5); Red Blood Count 3.39 M/uL (4.20-5.40); White Blood Count 5.76 K/ul (4.8-10.8)
[2024-02-05 08:13] LABS: BUN Creatinine Ratio 6.3 (10-20); Calcium 8.7 mg/dl (8.6-10.3); Est GFR (African American) 80.8 ml/min; Est GFR (Non-African American) 69.7 ml/min; Magnesium 1.8 mg/dl (1.7-2.4); Potassium 3.5 mmol/L (3.5-5.1)
[2024-02-05] MEDS ORDERED: Nursing to Pharmacy Communication SCH (09:15)
--- NOTE | 2024-02-05 11:55 | Hospitalist Progress Note ---
Date of Service February 05, 2024 Assessment & Plan (1) Colitis: Plan: Non-specific colitis seen on CT A&P. Diverticulosis without signs of diverticulitis. - PCR stool: Negative - Heme stools ordered, pending - Does have hx of IBS, follows with [facility] in [place] - requested records - IV protonix BID -Diet advanced to full liquids - has been having nausea and poor intake, will not further increase at this time - Continue maintence IVFs @ 80 ml/hr - Pain control prn tylenol and oxycodone GI consulted - appreciate recs - not recommending scope 02/02 (2) Hypertension: Plan: Continue home amlodipine and coreg Conitnue to monitor for hypotension as concerns for ischemic bowel (3) Diabetes: Plan: Hold home metformin (250mg daily) If persistently elevated sugars could consider SSI. (4) Hyperlipemia: Plan: Continue statin (5) GERD (gastroesophageal reflux disease): Plan: Switch to IV Protonix while inpatient - 40 mg BID With episodes of self relieving chest pain after meals. Trop WNL, EKG NSR without ischemic findings Add Maalox (6) Insomnia: Plan: Continue home Ambien prn and PRN clonazepam (7) Recurrent UTI: Plan: Patient with difficulty with complete voiding. Does straight cath TID. Will continue with Q6H cath while inpatient. Is on chronic abx for recurrent UTI - macrobid 100mg daily (8) Rheumatoid arthritis: Plan: Hold methotrexate - patient states she just restarted this last week Plan DVT ppx: SCDs, chemo ppx contraindicated as GI bleed Dispo: continued inpatient stay, hopeful to advance diet tomorrow Admission and Anticipated Discharge Date Admission Date: February 03, 2024 Supervising Physician Co-Signing Physician Notes PA Supervision Note: I did not personally see or examine the patient today, but I verified all conway points of GISEL Griffith's assessment and plan with the following exceptions/additions: None Subjective patient lying in bed, appears better than yesterday. States she ate one bite of breakfast and then got nauseous pain has improved has had blood on brief but has not noticed anything within in the stool - did have a bit of formed/soft stool this morning episode chest pain resolved spontaneously, no associated SOB or jaw pain Review of Systems Review of Systems: All systems reviewed & are unremarkable except as noted in Subjective Physical Exam Physical Exam: General: appears more comfortable compared to yesterday. VS as above Resp: normal respiratory effort, lungs clear to auscultation CV: RRR, no murmur. chest pain is not reproducible with palpation Abd:soft, normal bowel sounds, mild diffuse tenderness with guarding Extremities: Moves all extremities, no edema Neuro: A&O x3, Skin: intact, no lesions noted Results & Data Results & Data Vital Signs (Past 12 Hours) Vital Signs Temp Pulse Resp BP Pulse Ox O2 Del Method 02/05/24 07:12 36.6 C 74 16 155/67 H 95 Room Air Laboratory Results cbc and chemistry reviewed PG Care Time/CCT Total # of Minutes Spent Total Time Spent with Patient: Total time spent is greater than 50% in coordination of care (as documented) at patient's floor/unit and/or counseling patient: Coding Level of Care Code 73471 SUB INP/OBS CARE 3/50MIN Diagnoses Colitis K52.9 Hypertension I10 Diabetes E11.9 Hyperlipemia E78.5 GERD (gastroesophageal reflux disease) K21.9 Insomnia G47.00 Recurrent UTI N39.0 Rheumatoid arthritis M06.9
[2024-02-05] MEDS: HYDROCORTISONE HC 2.5% CRM 30GM TUBE EXT SCH (13:23)
[2024-02-05] MEDS: ALUMINUM/MAGNESIUM/SIMETH (MAALOX MAX) 30 ML UDC PO SCH (18:04)
[2024-02-05] MEDS: clonazePAM 0.5 MG TAB PO PRN (19:26)
[2024-02-05] MEDS: ATORVASTATIN 40 MG TAB PO SCH (20:55)
[2024-02-05] MEDS: ZOLPIDEM TARTRATE 5 MG TAB PO PRN (23:03)
[2024-02-06 10:31] LABS: BUN Creatinine Ratio 7.3 (10-20); Calcium 8.6 mg/dl (8.6-10.3); Creatinine Clr Calc Pharmacy 48.1 ml/min; Est GFR (African American) 77.2 ml/min; Est GFR (Non-African American) 66.6 ml/min; Potassium 3.5 mmol/L (3.5-5.1)
--- NOTE | 2024-02-06 15:10 | Hospitalist Progress Note ---
Date of Service February 06, 2024 Assessment & Plan (1) Colitis: Plan: Non-specific colitis seen on CT A&P. Diverticulosis without signs of diverticulitis. - PCR stool: Negative - Heme stools negative - Does have hx of IBS, follows with [facility] in [place] - requested records - IV protonix BID -Diet advanced to low fiber and fluids d/c'ed - painful with eating lunch, will continue to monitor - Pain control prn tylenol and oxycodone GI consulted - appreciate recs - not recommending scope 02/02 (2) Hypertension: Plan: Continue home amlodipine and coreg Conitnue to monitor for hypotension as concerns for ischemic bowel (3) Diabetes: Plan: Hold home metformin (250mg daily) If persistently elevated sugars could consider SSI. (4) Hyperlipemia: Plan: Continue statin (5) GERD (gastroesophageal reflux disease): Plan: Switch to IV Protonix while inpatient - 40 mg BID With episodes of self relieving chest pain after meals. Trop WNL, EKG NSR without ischemic findings Added Maalox - no further Chest pain symptoms since (6) Insomnia: Plan: Continue home Ambien prn and PRN clonazepam (7) Recurrent UTI: Plan: Patient with difficulty with complete voiding. Does straight cath TID. Will continue with Q6H cath while inpatient. Is on chronic abx for recurrent UTI - macrobid 100mg daily (8) Rheumatoid arthritis: Plan: Hold methotrexate - patient states she just restarted this last week Plan DVT ppx: SCDs, chemo ppx contraindicated as GI bleed Dispo: continued inpatient stay, hopeful to discharge tomorrow Admission and Anticipated Discharge Date Admission Date: February 05, 2024 Supervising Physician Co-Signing Physician Notes PA Supervision Note: I did not personally see or examine the patient today, but I verified all conway points of GISEL Griffith's assessment and plan with the following exceptions/additions: None Subjective Patient seen after breakfast this morning - no further episodes of CP. Has not noticed blood in her stools. Plan to stop fluids and advance diet for lunch and reevaluate No nausea this morning Pain after lunch and still with loose bowels. Review of Systems Review of Systems: All systems reviewed & are unremarkable except as noted in Subjective Physical Exam Physical Exam: General: appears more comfortable compared to yesterday. VS as above Resp: normal respiratory effort, lungs clear to auscultation CV: RRR, no murmur. chest pain is not reproducible with palpation Abd:soft, normal bowel sounds, mild diffuse tenderness with guarding Extremities: Moves all extremities, no edema Neuro: A&O x3, Skin: intact, no lesions noted Results & Data Results & Data Vital Signs (Past 12 Hours) Vital Signs Temp Pulse Resp BP Pulse Ox O2 Del Method 02/06/24 07:38 37.0 C 77 18 151/67 H 93 Room Air Laboratory Results BMP reviewed PG Care Time/CCT Total # of Minutes Spent Total Time Spent with Patient: Total time spent is greater than 50% in coordination of care (as documented) at patient's floor/unit and/or counseling patient: Coding Level of Care Code 16598 SUB INP/OBS CARE 2/35MIN Diagnoses Colitis K52.9 Hypertension I10 Diabetes E11.9 Hyperlipemia E78.5 GERD (gastroesophageal reflux disease) K21.9 Insomnia G47.00 Recurrent UTI N39.0 Rheumatoid arthritis M06.9
--- NOTE | 2024-02-07 14:42 | Discharge Summary ---
Discharge Summary Date of Service February 07, 2024 Principal Dx & Hospital Course #1 = Principal Diagnosis (1) Colitis: ?Ischemic vs infectious Non-specific colitis seen on CT A&P. Diverticulosis without signs of diverticulitis. - PCR stool: Negative - Cdiff: negative - Heme stools negative - Does have hx of IBS, follows with [facility] in [place] - will need outpatient follow up GI consulted - appreciate recs - not recommending scope 02/02 tolerating low fiber diet and stools starting to become more formed. Recommend continue on discharge until stools normalize (2) Hypertension: Continue home amlodipine and coreg (3) Diabetes: continue home metformin at discharge (4) Hyperlipemia: Continue statin (5) GERD (gastroesophageal reflux disease): continue PO Protonix at discharge With episodes of self relieving chest pain after meals. Trop WNL, EKG NSR without ischemic findings Added Maalox - no further Chest pain symptoms since - rx provied needs outpatient GI followup (6) Insomnia: Continue home Ambien prn and PRN clonazepam (7) Recurrent UTI: Patient with difficulty with complete voiding. Does straight cath TID. Is on chronic abx for recurrent UTI - macrobid 100mg daily (8) Rheumatoid arthritis: Hold methotrexate - patient states she just restarted this last week and needing liver US done Plan Dispo: discharge to home today. Notes For Next Care Provider admitted with abdominal pain, and diarrhea. GI bleeding self resolved. Ischemic versus infectious colitis - symptoms improving. Discharged with treatment for hemorrhoids and Maalox for worsening heartburn. recommend outpatient GI follow-up with [facility] Medication Changes From Visit hydrocortisone cream for hemorrhoids Maalox for heartburn Admission HPI Per Admitting Provider 84 y/o female with a PMHx of HTN, DM, GERD, and HLD presents with 3 days of significant abdominal pain. Symptoms started with diffuse, sharp, stabbing abdominal pain, cramping abdominal pain, nausea, vomiting and constipation. 02/01 patient developed bloody BMs. No significant volume to BM, but there was blood in the bowl and blood with wiping. No lightheadedness or dizziness. No fevers or chills. No chest pain or SOB. Patient with one episode of vomiting. No sick contacts. Patient did note having some pain under the left breast as well. Patient did go to [facility] prior to this and they did "labs and an echocardiogram". Patient not aware of the results of these tests. Discharge Exam General: appears well. VS as above Resp: normal respiratory effort, lungs clear to auscultation CV: RRR, no murmur. chest pain is not reproducible with palpation Abd:soft, normal bowel sounds, soft, tenderness improving Extremities: Moves all extremities, no edema Neuro: A&O x3, Skin: intact, no lesions noted Updated Medication List Medication Instructions Recorded Confirmed Type amlodipine 5 mg tablet 5 mg PO DAILY 02/03/24 02/03/24 History atorvastatin 80 mg tablet 80 mg PO DAILY 02/03/24 02/03/24 History carvedilol 12.5 mg tablet 12.5 mg PO BID 02/03/24 02/03/24 History clonazepam 0.5 mg tablet 0.5 mg PO BID PRN Anxiety 02/03/24 02/03/24 History conjugated estrogens 0.625 mg/gram 1 applic vaginal DIRECTED PRN .. 02/03/24 02/03/24 History vaginal cream (Premarin) dicyclomine 20 mg tablet 20 mg PO TID PRN .abd pain 02/03/24 02/03/24 History folic acid 1 mg tablet 1 mg PO DAILY 02/03/24 02/03/24 History metformin 500 mg tablet 250 mg PO DAILY 02/03/24 02/03/24 History methotrexate sodium 2.5 mg tablet 12.5 mg PO .Q THUR 02/03/24 02/03/24 History nitrofurantoin macrocrystal 100 mg 100 mg PO CQWK 02/03/24 02/03/24 History capsule pantoprazole 40 mg tablet,delayed 40 mg PO DAILY 02/03/24 02/03/24 History release potassium chloride 10 mEq 10 meq PO BID 02/03/24 02/03/24 History tablet,extended release zolpidem 5 mg tablet 5 mg PO HS PRN Sleep 02/03/24 02/03/24 History aluminum-mag hydroxide-simethicone 15 ml PO TIDM PRN indigestion 02/07/24 Rx 400 mg-400 mg-40 mg/5 mL oral susp #1,000 mL (Mag-Al Plus Extra Strength) hydrocortisone 2.5 % topical cream 1 applic EXT BID #30 grams 02/07/24 Rx with perineal applicator (Proctosol HC) Hospital Stay Data Consultations 02/03/24 01:25 ED Decision to Admit Stat Diagnostic Imagining Performed Abdomen/Pelvis CT 02/02/24 22:41 Exam(s): CT ABDOMEN + PELVIS With Contrast IV Amt: 94 ml opti 320 EXAM: CT Abdomen and Pelvis With Intravenous Contrast CLINICAL HISTORY: Reason for exam: ABd pain x2 days, rectal bleed. TECHNIQUE: Axial computed tomography images of the abdomen and pelvis with intravenous contrast. Automated exposure control was utilized for the study. A dose lowering technique was utilized adhering to the principles of ALARA. CONTRAST: Patient received 94 ml opti 320 of IV contrast COMPARISON: No relevant prior studies available. FINDINGS: Lung bases: Unremarkable. No mass. No consolidation. ABDOMEN: Liver: Hepatic steatosis. Gallbladder and bile ducts: Cholecystectomy. No ductal dilation. Pancreas: Unremarkable. No mass. No ductal dilation. Spleen: Unremarkable. No splenomegaly. Adrenals: Unremarkable. No mass. Kidneys and ureters: LEFT upper pole renal cyst measures 5.1 cm. No hydronephrosis or delayed nephrogram. Stomach and bowel: Moderate wall thickening of the sigmoid colon, concerning for colitis. Diverticulosis, without acute diverticulitis. No bowel obstruction. No free air. PELVIS: Appendix: No findings to suggest acute appendicitis. Bladder: Unremarkable. No mass. Reproductive: Unremarkable as visualized. ABDOMEN and PELVIS: Intraperitoneal space: See above. Bones/joints: Degenerative changes of the spine. No acute fracture. No dislocation. Soft tissues: Unremarkable. Vasculature: Atherosclerotic changes of the aorta. No abdominal aortic aneurysm. Lymph nodes: Unremarkable. No enlarged lymph nodes. IMPRESSION: 1. Moderate wall thickening of the sigmoid colon, concerning for colitis. 2. Hepatic steatosis. 3. Cholecystectomy. 4. Diverticulosis, without acute diverticulitis. No bowel obstruction. No free air. Electronically signed by: Gino Xiong MD 02/03/24 01:09 AM Pending Results Patient Have Any Pending Studies at Discharge: No Discharge Instructions Given to Patient (Per Discharging Provider) Ms. Corrales, Wiliam were hospitalized after having of severe abdominal pain and diarrhea with blood. Thankfully the blood has resolved on its own, this was likely from a hemorrhoid. Would recommend continued treatment of the hemorrhoid while you are still having diarrhea. I will send in cream from the pharmacy but it may be available [id number] and cheaper to purchase that way. In regards to the diarrhea, this should continue to get better on its own. Do not take Imodium or anything else to stop the diarrhea just in case this is caused by an infectious cause that was not on our testing. Regardless, this should resolve on its own. continue with a bland/low fiber diet until your stools return to normal. I have attached a handout below regarding low fiber diet. You also had 2 episodes of chest pain that were likely related to GERD/heartburn. I have sent in maalox that you can continue to use as needed. Overall recommendations: * continue treatment of hemorrhoid with hydrocortisone cream at least 2 times a day but up to 4 times * continue to use Bentyl as needed for abdominal pain. You can also use Tylenol. * Continue with low fiber diet * follow-up with [facility] in the next few weeks Medications: Your medication list has been reviewed and reconciled upon discharge to ensure accuracy and continuity of care. An updated list of all your medications is included with your hospital discharge paperwork. Please review this list closely, and make note of any changes. Take your medications as instructed; do not skip a dose of your medicines. Make sure all of your doctors know every medicine you are taking (including [id number] medicines, vitamins, and supplements). Call your primary care provider before taking any new medicines (including over- the-counter medicines, vitamins, and supplements), because some of these may interact with your current medications, or may make your symptoms worse. Tell your primary care provider if you cannot afford your medications. Activity: You can do normal everyday activities as your body allows. Take rest breaks if you feel tired. Do not overexert. Stop activity if you have pain, shortness of breath or feel dizzy. Follow-up appointments: Make an appointment with your primary care physician within one week of discharge. A copy of this summary will be sent to them. Every time you see your primary care physician, or any other doctor, bring your medication list, and a list of questions. CONTACT YOUR PRIMARY CARE PROVIDER if you experience any of the following: Shortness of breath or difficulty breathing Fevers or chills Feeling tired with normal activity or experiencing dizziness or fainting Difficulty following your treatment plan, or difficulty taking medications CALL 911 OR GO TO THE EMERGENCY DEPARTMENT if you experience any of the following: Severe abdominal pain or nausea/vomiting Severe chest pain, or chest pain that radiates (moves) to your jaw or arm Sudden, severe shortness of breath or difficulty breathing Thank you for allowing us to participate in your care. Total Time Total Time Spent Total Time Spent (In Minutes): Time spend day of discharge 33 minutes including direct patient care, medication reconciliation, documentation, review of labs and images, and coordination of care. Coding Level of Care Code 19932 INP/OBS DISCH >30 MIN Diagnoses Colitis K52.9 Hypertension I10 Diabetes E11.9 Hyperlipemia E78.5 GERD (gastroesophageal reflux disease) K21.9 Insomnia G47.00 Recurrent UTI N39.0 Rheumatoid arthritis M06.9
--- NOTE | 2024-02-08 06:16 | Electrocardiogram Report ---
Test Reason : Blood Pressure : / mmHG Vent. Rate : 070 BPM Atrial Rate : 070 BPM P-R Int : 176 ms QRS Dur : 094 ms QT Int : 412 ms P-R-T Axes : 050 -16 037 degrees QTc Int : 444 ms Normal sinus rhythm Normal ECG When compared with ECG of 02-FEB-2024 21:37, Questionable change in QRS duration Minimal criteria for Anteroseptal infarct are no longer Present Confirmed by Rajesh Newsome ([id number]) on 02/08/2024 6:15:52 AM Referred By: Nilson San Confirmed By:Rajesh Newsome
== END 2024-02-07 17:55 | disposition home or self-care (01) | DRG 392 ==
LOC: ED 21:23 → 3N 21:23 → SUATTDRO 02-03 03:01 → 3N 02-03 03:51 → SUATTDRO 02-05 11:50
DX: K57.90 Diverticulosis of intestine, part unspecified, without perforation or abscess without bleeding; K55.9 Vascular disorder of intestine, unspecified; K64.9 Unspecified hemorrhoids; M06.9 Rheumatoid arthritis, unspecified; E78.5 Hyperlipidemia, unspecified; K62.5 Hemorrhage of anus and rectum; Z87.440 Personal history of urinary (tract) infections; K21.9 Gastro-esophageal reflux disease without esophagitis; A08.4 Viral intestinal infection, unspecified; E11.9 Type 2 diabetes mellitus without complications; Z88.8 Allergy status to other drugs, medicaments and biological substances; N39.0 Urinary tract infection, site not specified; G47.00 Insomnia, unspecified; Z79.84 Long term (current) use of oral hypoglycemic drugs; D84.821 Immunodeficiency due to drugs; I10 Essential (primary) hypertension